=== PATIENT | female | born 1945 ===

== ENCOUNTER 2017-10-09 12:00 | Inpatient (IN) | payer OTHER ==
[~2017-10-09] VITALS: Ht 170.2 cm; Wt 90.7 kg
[~2017-10-09 12:00] MED LIST: ALPRAZOLAM ODT1 MG PO; DICLOFENAC SODI50 MG PO; INTEGRA PLUS C1 EACH PO; LOSARTAN-HCTZ1 EAC1 PO; MEDROLPACK PO; ORPH100T PO; OXYC1TAB9 PO; SYNTHROID150 MCG PO; TRANDATE300 MG; XARELTO10 MG PO
[2017-10-17] MEDS ORDERED: GABAPENTIN800 MG PO (10:30)
[2017-10-17] MEDS ORDERED: DOCUSATE SODIU100 MG PO (10:30)
[2017-10-17] MEDS ORDERED: PERCOCET 5-3251 EACH PO (10:31)
[2017-10-17] MEDS ORDERED: CLONAZEPAM1 MG PO (10:31)
[2017-10-17] MEDS ORDERED: AMOX-CLAV 875-1 EACH PO (10:31)
== END 2017-10-17 18:33 | DRG 460 ==
LOC: O/R 12:00 → PED 10-16 04:34
PROVIDERS: Orthopaedic Surgery Orthopaedic Surgery of the Spine
PROC: 0ST40ZZ Resection of Lumbosacral Disc, Open Approach (ICD-10-PCS; 2017-10-16)
PROC: 07DS3ZZ Extraction of Vertebral Bone Marrow, Percutaneous Approach (ICD-10-PCS; 2017-10-16)
PROC: 00NY0ZZ Release Lumbar Spinal Cord, Open Approach (ICD-10-PCS; principal; 2017-10-16 14:45)
PROC: 0SG30AJ Fusion of Lumbosacral Joint with Interbody Fusion Device, Posterior Approach, Anterior Column, Open Approach (ICD-10-PCS; 2017-10-16 14:45)
DX: M51.17 Intervertebral disc disorders with radiculopathy, lumbosacral region (principal); M47.27 Other spondylosis with radiculopathy, lumbosacral region; M48.07 Spinal stenosis, lumbosacral region; I11.9 Hypertensive heart disease without heart failure; E11.9 Type 2 diabetes mellitus without complications; E66.01 Morbid (severe) obesity due to excess calories; I25.10 Atherosclerotic heart disease of native coronary artery without angina pectoris; G47.33 Obstructive sleep apnea (adult) (pediatric); E03.8 Other specified hypothyroidism

== ENCOUNTER 2017-11-20 14:03 | Emergency (ER) | payer OTHER ==
[~2017-11-20] VITALS: Ht 170.2 cm; Wt 113.4 kg
[~2017-11-20 14:03] MED LIST changes: +AMOX-CLAV 875-1 EACH PO; +CLONAZEPAM1 MG PO; +DOCUSATE SODIU100 MG PO; +GABAPENTIN800 MG PO; +PERCOCET 5-3251 EACH PO
[2017-11-20] MEDS ORDERED: NORVASC10 MG (14:32)
[2017-11-20] MEDS ORDERED: LABETALOL HCL300 MG (14:32)
[2017-11-20] MEDS ORDERED: DICLOFENAC SODI50 MG PO (18:33)
[2017-11-20] MEDS ORDERED: MEDROLPACK PO (18:33)
== END 2017-11-20 20:40 | disposition home or self-care (01) ==
LOC: ER 14:03
DX: G89.18 Other acute postprocedural pain (principal); M79.604 Pain in right leg; Z98.1 Arthrodesis status